=== PATIENT | male | born 1960 | race Caucasian/White ===

== ENCOUNTER 2018-06-28 14:44 | Inpatient (IN) | payer MEDICARE ==
[~2018-06-28] VITALS: Ht 170.2 cm; Wt 47.9 kg
[2018-06-28] MEDS ORDERED: SODIUM CHLORIDE 0.9% 1,000 ML IV ONE ×3 (15:03→18:00)
[2018-06-28 15:29] LABS: BASOPHILS % (AUTO) 0.6 % (0.0-2.0); EOSINOPHILS % (AUTO) 0.1 % (1.0-6.0); HEMATOCRIT 31.1 % (41-53); HEMOGLOBIN 9.9 g/dL (13.5-17.5); LYMPHOCYTES # (AUTO) 0.1 K/uL (1.0-4.8); LYMPHOCYTES % (AUTO) 0.7 % (22.0-44.0); MEAN CORPUSCULAR HEMOGLOBIN 30.2 pg (26.0-34.0); MEAN CORPUSCULAR HGB CONC 31.8 G/dL (31.0-37.0); MEAN CORPUSCULAR VOLUME 95 fL (80-100); MONOCYTES # (AUTO) 0.8 K/uL (0.1-1.0); MONOCYTES % (AUTO) 5.3 % (2.0-9.0); NEUTROPHILS # (AUTO) 14.2 K/uL (1.8-7.7); NEUTROPHILS % (AUTO) 93.3 % (40.0-70.0); PLATELET COUNT (AUTO) 253 K/uL (150-450); RED BLOOD CELL COUNT(AUTO) 3.28 MIL/uL (4.50-5.90); RED CELL DISTRIBUTION WIDTH 13.7 % (11.5-14.5)
[2018-06-28] MEDS ORDERED: MIDAZOLAM HCL 5 MG/ML VIAL IVP ONE (15:30)
[2018-06-28] MEDS ORDERED: NALOXONE HCL 1 MG/ML 2 ML SYG IVP ONE (15:30)
[2018-06-28 15:42] LABS: ANION GAP 11 mmol/L (8-16); CALCIUM, TOTAL 8.8 mg/dL (8.8-10.5); CARBON DIOXIDE 29 mmol/L (22-29); CHLORIDE 106 mmol/L (98-107); CREATININE 0.91 mg/dL (0.60-1.30); GLOMERULAR FILTR. RATE CALC > 60 mL/min (>60); GLUCOSE,RANDOM 85 mg/dL (70-110); POTASSIUM 3.4 mmol/L (3.5-5.1); SODIUM SERUM 146 mmol/L (136-145); UREA NITROGEN, BLOOD 39 mg/dL (7-18)
[2018-06-28 15:46] LABS: AMMONIA 15 umol/L (11-32); LACTIC ACID 1.3 mmol/L (0.4-2.0)
[2018-06-28 15:47] LABS: TROPONIN I < 0.02 ng/mL (0.00-0.05)
[2018-06-28 15:48] LABS: B-TYPE NATRIURETIC PEPTIDE 156 pg/mL (0-100)
[2018-06-28 15:53] LABS: ACETAMINOPHEN < 2 mcg/mL (10-30); ALANINE AMINOTRANSFERASE 29 U/L (12-78); ALBUMIN 2.6 g/dL (3.4-5.0); ALKALINE PHOSPHATASE 69 U/L (46-116); ASPARTATE AMINOTRANSFERASE 48 U/L (15-37); BILIRUBIN,TOTAL 0.9 mg/dL (0.1-1.0); TOTAL PROTEIN, SERUM 7.3 g/dL (6.4-8.2)
[2018-06-28 16:48] LABS: SALICYLATE < 2.8 mg/dL (2.8-20.0)
[2018-06-28 17:18] LABS: APPEARANCE,URINE CLEAR (CLEAR); GLUCOSE, URINE (UA) NEGATIVE (NEGATIVE); KETONES,URINE >=80 mg/dL (NEGATIVE); LEUKOCYTE ESTERASE ,URINE NEGATIVE (NEGATIVE); NITRATE,URINE NEGATIVE (NEGATIVE); OCCULT BLOOD,URINE MODERATE (NEGATIVE); PROTEIN,URINE SEE CONFIRM (NEGATIVE)
[2018-06-28 17:20] LABS: AMPHET/METH SCREEN,URINE POSITIVE (NEGATIVE); BARBITURATE SCREEN, URINE NEGATIVE (NEGATIVE); BENZODIAZEPINES SCREEN,URINE POSITIVE (NEGATIVE); CANNABINOID SCREEN,URINE POSITIVE (NEGATIVE); COCAINE SCREEN,URINE NEGATIVE (NEGATIVE); METHADONE SCREEN, URINE NEGATIVE (NEGATIVE); OPIATE SCREEN,URINE NEGATIVE (NEGATIVE)
[2018-06-28 17:21] LABS: PHENCYCLIDINE SCREEN,URINE NEGATIVE (NEGATIVE)
[2018-06-28 17:26] LABS: BILIRUBIN,URINE PRELIM. POSITIVE (NEGATIVE)
[2018-06-28 17:41] LABS: SULFOSALICYLIC ACID,URINE 2+ (Negative)
[2018-06-28 17:43] LABS: BACTERIA,URINE Rare /HPF (None Seen); SQUAMOUS EPITHELIAL CELL,UR Rare /LPF (None Seen); WBC,URINE 0-2 /HPF (0-5)
[2018-06-28] MEDS ORDERED: CefTRIAXone 1 GM/DEXTROSE 50 ML IV ONE (18:00)
[2018-06-28] MEDS ORDERED: AZITHROMYCIN 500 MG/NS 250 ML IV ONE (18:00)
[2018-06-28] MEDS ORDERED: ACETAMINOPHEN 325 MG TABLET PO PRN ×2 (18:00→20:45)
[2018-06-28] MEDS ORDERED: 0.9% SODIUM CHLORIDE 10 ML SYRINGE IVP PRN (18:00)
[2018-06-28] MEDS ORDERED: ONDANSETRON HCL 4 MG/2 ML VIAL IVP PRN (18:00)
[2018-06-28 18:48] VITALS: BP 134/77
[2018-06-28] MEDS ORDERED: SODIUM CHLORIDE 0.9% 250 ML IV ONE (20:23)
[2018-06-28] MEDS ORDERED: HALOPERIDOL LACTATE 5 MG/ML VIAL IM PRN (20:45)
[2018-06-28] MEDS ORDERED: SODIUM CHLORIDE 0.45% 1,000 ML IV ONE (20:45)
[2018-06-28] MEDS ORDERED: MAGNESIUM HYDROXIDE SUSPENSION 30 ML UDCUP PO PRN (20:45)
[2018-06-28] MEDS: LORazepam 2 MG/ML VIAL IVP PRN (21:00)
[2018-06-28] MEDS ORDERED: PERMETHRIN 5% 60 GM CREAM TP ONE (21:00)
[2018-06-28] MEDS ORDERED: POTASSIUM CHLORIDE 20 MEQ ER TABLET PO ONE (21:00)
[2018-06-29 00:05] VITALS: BP 151/72
[2018-06-29] MEDS: LORazepam 2 MG/ML VIAL IVP PRN ×2 (00:55→11:42)
[2018-06-29 04:20] VITALS: BP 142/71
[2018-06-29 06:53] LABS: BASOPHILS % (AUTO) 0.4 % (0.0-2.0); EOSINOPHILS % (AUTO) 0 % (1.0-6.0); HEMATOCRIT 29.3 % (41-53); HEMOGLOBIN 9.5 g/dL (13.5-17.5); LYMPHOCYTES # (AUTO) 0.2 K/uL (1.0-4.8); LYMPHOCYTES % (AUTO) 0.7 % (22.0-44.0); MEAN CORPUSCULAR HGB CONC 32.5 G/dL (31.0-37.0); MEAN CORPUSCULAR VOLUME 95 fL (80-100); MONOCYTES # (AUTO) 1.3 K/uL (0.1-1.0); MONOCYTES % (AUTO) 5.8 % (2.0-9.0); NEUTROPHILS # (AUTO) 20.1 K/uL (1.8-7.7); PLATELET COUNT (AUTO) 268 K/uL (150-450); RED BLOOD CELL COUNT(AUTO) 3.07 MIL/uL (4.50-5.90); RED CELL DISTRIBUTION WIDTH 14.3 % (11.5-14.5)
[2018-06-29 07:09] LABS: NEUTROPHILS % (AUTO) 93.1 % (40.0-70.0)
[2018-06-29 07:10] LABS: ANION GAP 8 mmol/L (8-16); CALCIUM, TOTAL 8.6 mg/dL (8.8-10.5); CARBON DIOXIDE 31 mmol/L (22-29); CHLORIDE 108 mmol/L (98-107); GLUCOSE,RANDOM 81 mg/dL (70-110); POTASSIUM 3.8 mmol/L (3.5-5.1); SODIUM SERUM 147 mmol/L (136-145); UREA NITROGEN, BLOOD 27 mg/dL (7-18)
[2018-06-29 07:14] LABS: GLOMERULAR FILTR. RATE CALC > 60 mL/min (>60)
[2018-06-29] MEDS: HEPARIN SODIUM,PORCINE 5,000 UNITS/ML VIAL SQ SCH ×4 (08:00→23:58)
[2018-06-29] MEDS: FAMOTIDINE 20 MG TABLET PO SCH (08:33)
[2018-06-29] MEDS: DOCUSATE SODIUM 100 MG CAPSULE PO SCH (08:33)
[2018-06-29] MEDS ORDERED: DEXTROSE 5%-WATER 1,000 ML IV ONE (11:00)
[2018-06-29 16:00] VITALS: BP 122/83
[2018-06-29 19:15] VITALS: BP 136/82
[2018-06-29] MEDS: CefTRIAXone 1 GM/DEXTROSE 50 ML IV SCH (20:25)
[2018-06-29] MEDS: HALOPERIDOL LACTATE 5 MG/ML VIAL IVP SCH (20:26)
[2018-06-29] MEDS: AZITHROMYCIN 500 MG/NS 250 ML IV SCH (20:26)
[2018-06-29 23:15] VITALS: BP 128/80
[2018-06-30 04:49] LABS: BASOPHILS % (AUTO) 0.3 % (0.0-2.0); EOSINOPHILS % (AUTO) 0 % (1.0-6.0); HEMATOCRIT 29.9 % (41-53); HEMOGLOBIN 9.4 g/dL (13.5-17.5); LYMPHOCYTES # (AUTO) 0.2 K/uL (1.0-4.8); LYMPHOCYTES % (AUTO) 1.3 % (22.0-44.0); MEAN CORPUSCULAR HEMOGLOBIN 30.6 pg (26.0-34.0); MEAN CORPUSCULAR HGB CONC 31.3 G/dL (31.0-37.0); MEAN CORPUSCULAR VOLUME 98 fL (80-100); MONOCYTES # (AUTO) 0.8 K/uL (0.1-1.0); MONOCYTES % (AUTO) 5.1 % (2.0-9.0); NEUTROPHILS # (AUTO) 14.7 K/uL (1.8-7.7); PLATELET COUNT (AUTO) 285 K/uL (150-450); RED BLOOD CELL COUNT(AUTO) 3.06 MIL/uL (4.50-5.90); RED CELL DISTRIBUTION WIDTH 14.6 % (11.5-14.5)
[2018-06-30 04:51] LABS: NEUTROPHILS % (AUTO) 93.3 % (40.0-70.0)
[2018-06-30 07:30] LABS: MAGNESIUM 2.1 mg/dL (1.80-2.40); PHOSPHORUS 2.6 mg/dL (2.5-4.9)
[2018-06-30 07:42] VITALS: BP 121/62
[2018-06-30] MEDS: FAMOTIDINE 20 MG TABLET PO SCH (08:19)
[2018-06-30] MEDS: DOCUSATE SODIUM 100 MG CAPSULE PO SCH ×2 (08:19→20:07)
[2018-06-30] MEDS: HEPARIN SODIUM,PORCINE 5,000 UNITS/ML VIAL SQ SCH ×2 (08:19→16:00)
[2018-06-30 11:05] VITALS: BP 114/65
[2018-06-30] MEDS: ALBUTEROL SULFATE 2.5 MG/0.5 ML NEB SOLUTION NEB PRN ×2 (14:20→20:46)
[2018-06-30 15:02] VITALS: BP 110/70
[2018-06-30 19:59] VITALS: BP 115/71
[2018-06-30] MEDS: CefTRIAXone 1 GM/DEXTROSE 50 ML IV SCH (20:04)
[2018-06-30] MEDS ORDERED: SODIUM CHLORIDE 0.9% 500 ML IV ONE (20:09)
[2018-06-30] MEDS: AZITHROMYCIN 500 MG/NS 250 ML IV SCH (20:54)
[2018-06-30] MEDS: HALOPERIDOL LACTATE 5 MG/ML VIAL IVP SCH (23:18)
[2018-07-01 04:46] VITALS: BP 123/71
[2018-07-01 06:06] LABS: BASOPHILS % (AUTO) 0.4 % (0.0-2.0); EOSINOPHILS % (AUTO) 0.2 % (1.0-6.0); HEMATOCRIT 26.3 % (41-53); HEMOGLOBIN 8.5 g/dL (13.5-17.5); LYMPHOCYTES # (AUTO) 0.3 K/uL (1.0-4.8); LYMPHOCYTES % (AUTO) 3.9 % (22.0-44.0); MEAN CORPUSCULAR HGB CONC 32.3 G/dL (31.0-37.0); MEAN CORPUSCULAR VOLUME 96 fL (80-100); MONOCYTES # (AUTO) 0.5 K/uL (0.1-1.0); MONOCYTES % (AUTO) 6.6 % (2.0-9.0); NEUTROPHILS # (AUTO) 6.5 K/uL (1.8-7.7); PLATELET COUNT (AUTO) 257 K/uL (150-450); RED BLOOD CELL COUNT(AUTO) 2.74 MIL/uL (4.50-5.90); RED CELL DISTRIBUTION WIDTH 14.2 % (11.5-14.5)
[2018-07-01 06:46] LABS: ANION GAP 2 mmol/L (8-16); CALCIUM, TOTAL 8.5 mg/dL (8.8-10.5); CARBON DIOXIDE 38 mmol/L (22-29); CHLORIDE 102 mmol/L (98-107); GLUCOSE,RANDOM 86 mg/dL (70-110); SODIUM SERUM 142 mmol/L (136-145); UREA NITROGEN, BLOOD 21 mg/dL (7-18)
[2018-07-01 07:03] LABS: NEUTROPHILS % (AUTO) 88.9 % (40.0-70.0)
[2018-07-01 07:07] LABS: GLOMERULAR FILTR. RATE CALC > 60 mL/min (>60)
[2018-07-01 08:00] VITALS: BP 126/91
[2018-07-01] MEDS: HEPARIN SODIUM,PORCINE 5,000 UNITS/ML VIAL SQ SCH ×4 (08:17→23:58)
[2018-07-01] MEDS: DOCUSATE SODIUM 100 MG CAPSULE PO SCH ×2 (08:17→20:56)
[2018-07-01] MEDS: FAMOTIDINE 20 MG TABLET PO SCH (08:17)
[2018-07-01 12:00] VITALS: BP 121/84
[2018-07-01 15:17] VITALS: BP 123/67
[2018-07-01 20:08] VITALS: BP 131/73
[2018-07-01] MEDS: CefTRIAXone 1 GM/DEXTROSE 50 ML IV SCH (20:33)
[2018-07-01] MEDS: HALOPERIDOL LACTATE 5 MG/ML VIAL IVP SCH (20:56)
[2018-07-01] MEDS: AZITHROMYCIN 500 MG/NS 250 ML IV SCH (21:07)
[2018-07-02 01:05] VITALS: BP 126/79
[2018-07-02 05:03] VITALS: BP 135/81
[2018-07-02 08:01] VITALS: BP 126/83
[2018-07-02] MEDS: HEPARIN SODIUM,PORCINE 5,000 UNITS/ML VIAL SQ SCH ×3 (09:24→23:59)
[2018-07-02] MEDS: FAMOTIDINE 20 MG TABLET PO SCH (09:25)
[2018-07-02] MEDS: DOCUSATE SODIUM 100 MG CAPSULE PO SCH ×2 (09:25→19:47)
[2018-07-02 12:17] VITALS: BP 117/79
[2018-07-02 15:34] VITALS: BP 120/75
[2018-07-02] MEDS ORDERED: SODIUM CHLORIDE 0.9% 500 ML IV ONE (17:42)
[2018-07-02] MEDS: CefTRIAXone 1 GM/DEXTROSE 50 ML IV SCH (19:47)
[2018-07-02] MEDS: HALOPERIDOL LACTATE 5 MG/ML VIAL IVP SCH (19:48)
[2018-07-02 20:05] VITALS: BP 148/69
[2018-07-02] MEDS ORDERED: 0.9% SODIUM CHLORIDE 5 ML NEB SOLUTION NEB ONE (20:34)
[2018-07-02] MEDS: AZITHROMYCIN 500 MG/NS 250 ML IV SCH (20:36)
[2018-07-02] MEDS: ALBUTEROL SULFATE 2.5 MG/0.5 ML NEB SOLUTION NEB SCH (20:44)
[2018-07-02] MEDS: OxyCODONE HCL/ACETAMINOPHEN 5-325 MG TABLET PO PRN (22:43)
[2018-07-03 00:05] VITALS: BP 125/72
[2018-07-03] MEDS ORDERED: 0.9% SODIUM CHLORIDE 5 ML NEB SOLUTION NEB ONE ×3 (01:48→20:04)
[2018-07-03] MEDS: ALBUTEROL SULFATE 2.5 MG/0.5 ML NEB SOLUTION NEB SCH ×3 (02:12→20:20)
[2018-07-03 04:05] VITALS: BP 129/77
[2018-07-03 07:34] VITALS: BP 141/78
[2018-07-03] MEDS: FAMOTIDINE 20 MG TABLET PO SCH (07:59)
[2018-07-03] MEDS: HEPARIN SODIUM,PORCINE 5,000 UNITS/ML VIAL SQ SCH ×3 (07:59→23:12)
[2018-07-03] MEDS: DOCUSATE SODIUM 100 MG CAPSULE PO SCH ×2 (07:59→23:09)
[2018-07-03 15:13] VITALS: BP 132/84
[2018-07-03 16:03] LABS: BASOPHILS % (AUTO) 1.1 % (0.0-2.0); EOSINOPHILS % (AUTO) 1.7 % (1.0-6.0); HEMATOCRIT 27.7 % (41-53); LYMPHOCYTES # (AUTO) 0.3 K/uL (1.0-4.8); LYMPHOCYTES % (AUTO) 4.5 % (22.0-44.0); MEAN CORPUSCULAR HEMOGLOBIN 30.8 pg (26.0-34.0); MEAN CORPUSCULAR HGB CONC 32.6 G/dL (31.0-37.0); MEAN CORPUSCULAR VOLUME 94 fL (80-100); MONOCYTES # (AUTO) 0.4 K/uL (0.1-1.0); MONOCYTES % (AUTO) 6.3 % (2.0-9.0); NEUTROPHILS # (AUTO) 5.1 K/uL (1.8-7.7); PLATELET COUNT (AUTO) 295 K/uL (150-450); RED BLOOD CELL COUNT(AUTO) 2.93 MIL/uL (4.50-5.90)
[2018-07-03 16:04] LABS: NEUTROPHILS % (AUTO) 86.4 % (40.0-70.0)
[2018-07-03 16:17] LABS: ALANINE AMINOTRANSFERASE 26 U/L (12-78); ALBUMIN 1.7 g/dL (3.4-5.0); ALKALINE PHOSPHATASE 56 U/L (46-116); ANION GAP -2 mmol/L (8-16); ASPARTATE AMINOTRANSFERASE 34 U/L (15-37); BILIRUBIN,TOTAL 0.1 mg/dL (0.1-1.0); CALCIUM, TOTAL 8.7 mg/dL (8.8-10.5); CARBON DIOXIDE 40 mmol/L (22-29); CHLORIDE 101 mmol/L (98-107); CREATININE 0.49 mg/dL (0.60-1.30); GLUCOSE,RANDOM 93 mg/dL (70-110); POTASSIUM 4.6 mmol/L (3.5-5.1); SODIUM SERUM 139 mmol/L (136-145); TOTAL PROTEIN, SERUM 6.1 g/dL (6.4-8.2); UREA NITROGEN, BLOOD 13 mg/dL (7-18)
[2018-07-03 16:19] LABS: GLOMERULAR FILTR. RATE CALC > 60 mL/min (>60)
[2018-07-03 19:50] VITALS: BP 152/82
[2018-07-03] MEDS: CefTRIAXone 1 GM/DEXTROSE 50 ML IV SCH (19:55)
[2018-07-03] MEDS: HALOPERIDOL LACTATE 5 MG/ML VIAL IVP SCH (20:40)
[2018-07-03] MEDS: AZITHROMYCIN 500 MG/NS 250 ML IV SCH (20:40)
[2018-07-03] MEDS: OxyCODONE HCL/ACETAMINOPHEN 5-325 MG TABLET PO PRN (23:12)
[2018-07-03 23:18] VITALS: BP 148/88
[2018-07-04] MEDS ORDERED: 0.9% SODIUM CHLORIDE 5 ML NEB SOLUTION NEB ONE ×4 (02:33→19:26)
[2018-07-04] MEDS: ALBUTEROL SULFATE 2.5 MG/0.5 ML NEB SOLUTION NEB SCH ×4 (02:38→19:28)
[2018-07-04 04:11] VITALS: BP 123/78
[2018-07-04 07:32] VITALS: BP 133/80
[2018-07-04] MEDS: FAMOTIDINE 20 MG TABLET PO SCH (07:46)
[2018-07-04] MEDS: HEPARIN SODIUM,PORCINE 5,000 UNITS/ML VIAL SQ SCH ×3 (07:46→23:06)
[2018-07-04] MEDS: DOCUSATE SODIUM 100 MG CAPSULE PO SCH ×2 (07:46→20:13)
[2018-07-04 11:30] VITALS: BP 119/69
[2018-07-04 15:39] VITALS: BP 120/72
[2018-07-04] MEDS ORDERED: NICOTINE 21 MG/24 HOUR PATCH TD ONE (16:15)
[2018-07-04 19:38] VITALS: BP 142/90
[2018-07-04] MEDS: CefTRIAXone 1 GM/DEXTROSE 50 ML IV SCH (20:13)
[2018-07-04] MEDS: HALOPERIDOL LACTATE 5 MG/ML VIAL IVP SCH (20:13)
[2018-07-04] MEDS: AZITHROMYCIN 500 MG/NS 250 ML IV SCH (20:55)
[2018-07-04 23:48] VITALS: BP 140/86
[2018-07-05] MEDS ORDERED: 0.9% SODIUM CHLORIDE 5 ML NEB SOLUTION NEB ONE ×3 (02:51→19:44)
[2018-07-05] MEDS: ALBUTEROL SULFATE 2.5 MG/0.5 ML NEB SOLUTION NEB SCH ×4 (02:53→19:46)
[2018-07-05 03:52] VITALS: BP 134/78
[2018-07-05 07:06] VITALS: BP 118/78
[2018-07-05] MEDS: HEPARIN SODIUM,PORCINE 5,000 UNITS/ML VIAL SQ SCH ×3 (09:19→23:09)
[2018-07-05] MEDS: DOCUSATE SODIUM 100 MG CAPSULE PO SCH ×2 (09:19→20:45)
[2018-07-05] MEDS: FAMOTIDINE 20 MG TABLET PO SCH (09:19)
[2018-07-05 12:05] VITALS: BP 138/84
[2018-07-05 15:10] VITALS: BP 119/71
[2018-07-05] MEDS: CefTRIAXone 1 GM/DEXTROSE 50 ML IV SCH (19:45)
[2018-07-05 20:00] VITALS: BP 123/75
[2018-07-05] MEDS: HALOPERIDOL LACTATE 5 MG/ML VIAL IVP SCH (20:45)
[2018-07-05] MEDS: AZITHROMYCIN 500 MG/NS 250 ML IV SCH (20:45)
[2018-07-06] VITALS: BP 119/72
[2018-07-06] MEDS: ALBUTEROL SULFATE 2.5 MG/0.5 ML NEB SOLUTION NEB SCH ×3 (02:00→14:00)
[2018-07-06] MEDS ORDERED: 0.9% SODIUM CHLORIDE 5 ML NEB SOLUTION NEB ONE ×3 (02:07→13:52)
[2018-07-06 04:00] VITALS: BP 120/78
[2018-07-06 07:19] VITALS: BP 135/82
[2018-07-06] MEDS: HEPARIN SODIUM,PORCINE 5,000 UNITS/ML VIAL SQ SCH (07:59)
[2018-07-06] MEDS: DOCUSATE SODIUM 100 MG CAPSULE PO SCH (07:59)
[2018-07-06] MEDS: FAMOTIDINE 20 MG TABLET PO SCH (07:59)
[2018-07-06 11:29] VITALS: BP 122/70
[2018-07-07] MEDS ORDERED: MULTIVITAMINS WITH MINERALS, THERAPEUTIC TABLET PO SCH (09:00)
== END 2018-07-06 14:20 | disposition left against medical advice (07) | DRG 871 ==
LOC: EMS 14:49 → 4E 17:40 → EDBD 17:40 → 5N 07-01 19:00
PROVIDERS: ADMIT Internal Medicine; ATTEND Internal Medicine
DX: A41.9 Sepsis, unspecified organism (principal); G92 Toxic encephalopathy; E43 Unspecified severe protein-calorie malnutrition; E87.0 Hyperosmolality and hypernatremia; Z68.1 Body mass index [BMI] 19.9 or less, adult; E87.6 Hypokalemia; Z59.0 Homelessness; Z78.1 Physical restraint status; Z53.21 Procedure and treatment not carried out due to patient leaving prior to being seen by health care provider; E86.0 Dehydration; F19.10 Other psychoactive substance abuse, uncomplicated; F17.210 Nicotine dependence, cigarettes, uncomplicated; Z91.19 Patient's noncompliance with other medical treatment and regimen; B86 Scabies; R00.0 Tachycardia, unspecified
CPT/HCPCS: 70450; 71250; 83605; 83735; 84100; 87040; 87205; 93005; 94640; 96374; 96375; 99291; G0378; G0480; G0481; J0456; J0696; J1630; J1644; J2060; J2250; J2310; J7030; J7040; J7050; J7060